=== PATIENT | male | born 1980 | race Caucasian/White ===

== ENCOUNTER 2017-01-13 08:51 | Emergency (ER) | payer OTHER ==
[~2017-01-13] VITALS: Ht 172.7 cm; Wt 87.1 kg
[~2017-01-13 08:51] MED LIST: NAPR500T4 PO; ONDN4T PO; QUET200T PO
--- OUTSIDE RECORDS SUMMARY | 2017-01-13 09:01 | XMS REPORT | Continuity of Care Document ---
Author Author [facility] Organization [facility] Address Unknown Phone Unavailable Allergies Active Description Code Type Severity Reaction Onset Reported/Identified Relationship to Patient Clinical Status Yes No Known Drug Allergies [id number] Drug Allergy Unknown N/ A 07/13/2015 Medications Problems Date Dx Coded Attending Type Code Diagnosis Diagnosed By 07/13/2015 ANALI RUSSELL, PAUL Ramos Ot F17.210 NICOTINE DEPENDENCE, CIGARETTES, UNCOMPL 07/13/2015 PAUL BRIONES MD Ot R55 SYNCOPE AND COLLAPSE 03/03/2016 FRANCIS ALLEN DO Ot F17.210 NICOTINE DEPENDENCE, CIGARETTES, UNCOMPL 03/03/2016 FRANCIS ALLEN DO Ot S90.211A CONTUSION OF RIGHT GREAT TOE W DAMAGE TO 03/03/2016 ALEJANDROMILADY Woodard DOA K Ot S99.921A UNSPECIFIED INJURY OF RIGHT FOOT, INITIA 03/03/2016 MILADY ALLEN DOA K Ot W22.09XA STRIKING AGAINST OTHER STATIONARY OBJECT 03/03/2016 MILADY ALLEN DOA K Ot Y92.[address] OR NOT APPLICABLE 03/03/2016 MILADY ALLEN DOA K Ot Y93.89 ACTIVITY, OTHER SPECIFIED 03/03/2016 ALEJANDRO DO FRANCIS K Ot Y99.8 OTHER EXTERNAL CAUSE STATUS Procedures Results Encounters ACCT No. Visit Date/Time Discharge Status Pt. Type Provider Facility Loc./Unit Complaint [id number] 03/01/2016 22:27:00 2015 23:04:00 DIS Outpatient FRANCIS ALLEN DO [facility] ER R BIG TOE BROKEN [id number] 07/13/2015 08:05:00 2015 10:50:00 DIS Emergency PAUL BRIONES MD [facility] ER FALL/HEAD INJURY
--- OUTSIDE RECORDS SUMMARY | 2017-01-13 09:01 | XMS REPORT ---
Author Author DENA MEJIA Organization [employer] Address Unknown Phone Unavailable Care Team Providers Care Visitor Services Representative Name Role Phone DENA MEJIA CP Unavailable Allergies, Adverse Reactions, Alerts Substance Reaction Event Type N.K.D.A. Info Not Available Non Drug Allergy Problems Problem Type Condition ICD-9 Code Onset Dates Condition Status Assessment Urinary frequency 788.41 Active Assessment Rectal bleeding 569.3 Active Medications No Known Medications Procedures Procedure Coding System Code Date No Charge CPT-4 22347 Feb 08, 2015 Office Visit, New Pt., Level 3 CPT-4 42532 Feb 08, 2015 URINALYSIS, AUTO, W/O SCOPE CPT-4 81408 Feb 08, 2015 Vital Signs Date/Time: Feb 08, 2015 Temperature 98.9 F Weight 209 lbs Height 70 in BMI 29.99 Index Blood Pressure Diastolic 78 mmHg Blood Pressure Systolic 120 mmHg Cardiac Monitoring Heart Rate 78 bpm Results Name Result Date Reference Range Unit Abnormality Flag UA LONG DIP (IN HOUSE) Summary Purpose [employer] Submission
[2017-01-13] MEDS ORDERED: NS IV 1000 ML 1,000 ML IV ONE (09:32)
[2017-01-13] MEDS ORDERED: FAMOTIDINE 20MG/2ML IV (PEPCID) IVP ONE (09:45)
[2017-01-13] MEDS ORDERED: ONDANSETRON 4 MG/2 ML (SDV) Z0FRAN IVP ONE (09:45)
--- NOTE | 2017-01-13 09:52 | ED Abdominal Pain ---
General Chief Complaint: Abdominal/GI Problems Stated Complaint: ABDOMINAL PAIN/NAUSEOUS Nursing Triage Note: c/o abd pain and bloody stools x 2 days. Hx of similiar episodes the last 2 years. Pt was told he needs a colonoscopy but has not had one yet. Sepsis Screen: No Definite Risk Source of Information: Patient Exam Limitations: No Limitations (KATARZYNA MORIN) History of Present Illness Time Seen By Provider: 09:19 Initial Comments Salvatore Flaherty is a 36 year old male presenting to the ED with nausea, abdominal pain, and bleeding per rectum. The symptoms have been occurring for a couple of years but got worse in August. He has lower abdominal pain and nausea all the time, but some days is much worse than others. Sometimes fatty or spicy foods make the pain worse, but usually he cannot identify a trigger. When the pain is worst he takes ibuprofen and that dulls the pain but does not take it away. He has never taken antacids or PPIs long-term. When the pain is worse, there is usually more blood. He has blood per rectum both alone and with stools. Bowel movements are usually diarrhea. Sometimes the blood is bright red and other times darker with clots. He has had two episodes of blood in vomit in the last two months. He has decreased appetite and nausea that prevent him from eating much, and has lost 8 pounds in the last two months. He presented to the ED today because the abdominal pain was severe this morning and heavy bleeding per rectum. He had started a workup in [place], [place] but moved back to [place] before he had a colonoscopy or was given a diagnosis. He also has a reducible left-sided inguinal hernia. (KATARZYNA MORIN) Allergies and Home Medications Allergies Coded Allergies: No Known Drug Allergies (Unverified , 07/13/15) Home Medications Omeprazole 20 Mg Tablet.dr, 20 MG PO BID, #60 Prescribed by: IVET BRITTON on 01/13/17 1135 Ondansetron 4 Mg Tab.rapdis, 4 MG SL Q4H PRN for NAUSEA/VOMITING-1ST LINE, #10 Ref 1 Prescribed by: IVET BRITTON on 01/13/17 1135 Tramadol HCl 50 Mg Tablet, 50 MG PO QID PRN for PAIN-MODERATE TO SEVERE, #20 Prescribed by: IVET BRITTON on 01/13/17 1135 Review of Systems Constitutional: weight loss EENTM: No Symptoms Reported Respiratory: No Symptoms Reported Cardiovascular: No Symptoms Reported Gastrointestinal: See HPI, Abdominal Pain, Diarrhea, Nausea, Poor Appetite, Rectal Bleeding Genitourinary: No Symptoms Reported Musculoskeletal: no symptoms reported Skin: no symptoms reported Psychiatric/Neurological: No Symptoms Reported Endocrine: No Symptoms Reported Hematologic/Lymphatic: No Symptoms Reported (KATARZYNA MORIN) Past Zbbugoz-Iocyjn-Uzakvi Hx Patient Social History Alcohol Use: Occasionally Uses Recreational Drug Use: No Smoking Status: Current Everyday Smoker Type Used: Cigarettes Recent Foreign Travel: No Contact w/Someone Who Travel: No Recent Infectious Disease Expo: No Recent Hopitalizations: No (KATARZYNA MORIN) Immunizations Up To Date Tetanus Booster (TDap): Unknown (KATARZYNA MORIN) Seasonal Allergies Seasonal Allergies: No (KATARZYNA MORIN) Surgeries Surgeries: Appendectomy, Tonsillectomy (KATARZYNA MORIN) Blood Transfusions Adverse Reaction to a Blood Tr: No (KATARZYNA MORIN) Family Medical History Significant Family History: Cancer (paternal grandmother with colon cancer in late 40s, maternal grandfather with colon cancer in mid 30s, paternal grandfather with lung cancer), Diabetes (paternal grandfather ) (KATARZYNA MORIN) Physical Exam Vital Signs VS - Last 72 Hours, by Label 01/13/17 01/13/17 09:13 11:50 Temp 97.9 97.9 Pulse 74 72 Resp 16 16 B/P (MAP) 132/95 Pulse Ox 98 98 O2 Delivery Room Air (IVET GARIBAY MD) Vital Signs Capillary Refill : Less Than 3 Seconds (KATARZYNA MORIN) General Appearance: mild distress HEENT: PERRL/EOMI, TMs normal Respiratory: lungs clear, normal breath sounds, no respiratory distress, no accessory muscle use Cardiovascular: regular rate, rhythm, no murmur Gastrointestinal: normal bowel sounds, soft, no pulsatile mass, tenderness ( epigastric and lower abdominal tenderness, worst in suprapubic region) Rectal: deferred (will see general surgeon this afternoon) Neurologic/Psychiatric: alert, normal mood/affect, oriented x 3 Skin: normal color, warm/dry (KATARZYNA MORIN) Progress/Results/Core Measures Results/Orders Lab Results Laboratory Tests Test 01/13/17 09:45 01/13/17 10:15 Range/Units White Blood Count 5.7 4.3-11.0 10^3/uL Red Blood Count 5.47 4.35-5.85 10^6/uL Hemoglobin 16.0 13.3-17.7 G/DL Hematocrit 48 40-54 % Mean Corpuscular Volume 88 80-99 FL Mean Corpuscular Hemoglobin 29 25-34 PG Mean Corpuscular Hemoglobin Concent 33 32-36 G/DL Red Cell Distribution Width 12.7 10.0-14.5 % Platelet Count 161 130-400 10^3/uL Mean Platelet Volume 10.4 7.4-10.4 FL Neutrophils (%) (Auto) 56 42-75 % Lymphocytes (%) (Auto) 33 12-44 % Monocytes (%) (Auto) 10 0-12 % Eosinophils (%) (Auto) 1 0-10 % Basophils (%) (Auto) 0 0-10 % Neutrophils # (Auto) 3.2 1.8-7.8 X 10^3 Lymphocytes # (Auto) 1.9 1.0-4.0 X 10^3 Monocytes # (Auto) 0.5 0.0-1.0 X 10^3 Eosinophils # (Auto) 0.1 0.0-0.3 10^3/uL Basophils # (Auto) 0.0 0.0-0.1 10^3/uL Erythrocyte Sedimentation Rate 1 0-15 MM/HR Sodium Level 140 135-145 MMOL/L Potassium Level 4.2 3.6-5.0 MMOL/L Chloride Level 106 98-107 MMOL/L Carbon Dioxide Level 26 21-32 MMOL/L Anion Gap 8 5-14 MMOL/L Blood Urea Nitrogen 10 7-18 MG/DL Creatinine 0.82 0.60-1.30 MG/DL Estimat Glomerular Filtration Rate > 60 BUN/Creatinine Ratio 12 Glucose Level 95 70-105 MG/DL Calcium Level 9.7 8.5-10.1 MG/DL Magnesium Level 2.3 1.8-2.4 MG/DL Total Bilirubin 2.0 H 0.1-1.0 MG/DL Aspartate Amino Transf (AST/SGOT) 43 H 5-34 U/L Alanine Aminotransferase (ALT/SGPT) 84 H 0-55 U/L Alkaline Phosphatase 68 40-136 U/L C-Reactive Protein High Sensitivity 0.06 0.00-0.50 MG/DL Total Protein 7.4 6.4-8.2 GM/DL Albumin 4.5 3.2-4.5 GM/DL Lipase 16 8-78 U/L Urine Color YELLOW Urine Clarity CLEAR Urine pH 8 5-9 Urine Specific [place] 1.010 L 1.016-1.022 Urine Protein NEGATIVE NEGATIVE Urine Glucose (UA) NEGATIVE NEGATIVE Urine Ketones NEGATIVE NEGATIVE Urine Nitrite NEGATIVE NEGATIVE Urine Bilirubin NEGATIVE NEGATIVE Urine Urobilinogen NORMAL NORMAL MG/DL Urine Leukocyte Esterase NEGATIVE NEGATIVE Urine RBC (Auto) NEGATIVE NEGATIVE Urine RBC NONE /HPF Urine WBC NONE /HPF Urine Squamous Epithelial Cells RARE /HPF Urine Crystals NONE /LPF Urine Bacteria NEGATIVE /HPF Urine Casts NONE /LPF Urine Mucus NEGATIVE /LPF Urine Culture Indicated NO (IVET GARIBAY MD) My Orders Orders - IVET GARIBAY MD Saline Lock/Iv-Start (01/13/17 09:32) Cbc With Automated Diff (01/13/17 09:32) Comprehensive Metabolic Panel (01/13/17 09:32) Hs C Reactive Protein (01/13/17 09:32) Erythrocyte Sedimentation Rate (01/13/17 09:32) Lipase (01/13/17 09:32) Magnesium (01/13/17 09:32) Ua Culture If Indicated (01/13/17 09:32) Ondansetron Injection (Zofran Injectio (01/13/17 09:45) Famotidine Injection (Pepcid Injection) (01/13/17 09:45) Ns Iv 1000 Ml (Sodium Chloride 0.9%) (01/13/17 09:32) Iv Push Lean Consultant Ed (01/13/17 ) (IVET GARIBAY MD) Medications Given in ED (IVET GARIBAY MD) Vital Signs/I&O Vital Sign - Last 12Hours 01/13/17 01/13/17 09:13 11:50 Temp 97.9 97.9 Pulse 74 72 Resp 16 16 B/P (MAP) 132/95 Pulse Ox 98 98 O2 Delivery Room Air (IVTE GARIBAY MD) Blood Pressure Mean: 107 Progress Note : Progress Note Patient was seen, examined, and interviewed along with Katarzyna Mccrary, 4. I agree with MS for history, exam, and documentation with the following additions. Labs were essentially unremarkable. Case was reviewed with Dr. Patrick who invited patient to see him in the clinic this afternoon and arrange for colonoscopy. Dr. Patrick did not believe a repeat CT scan was necessary at this time. I asked the patient to provide the surgery office with contact information for the facility in [place] that did his CT. Patient was also advised to complete financial services counselor paperwork. Patient was dismissed with prescriptions and follow-up instructions to the surgery office. Patient was advised he will need endoscopy for further evaluation. See discharge instructions. (IVET GARIBAY MD) Departure Impression Impression: Primary Impression: Left lower quadrant pain Additional Impressions: Nausea and vomiting Qualified Codes: R11.2 - Nausea with vomiting, unspecified Hematochezia Hematemesis Qualified Codes: K92.0 - Hematemesis; R11.0 - Nausea Disposition: 01 HOME, SELF-CARE Condition: Improved Departure-Patient Inst. Decision time for Depature: 11:10 (IVET GARIBAY MD) Referrals: JAIME PATRICK DO NO,LOCAL PHYSICIAN (PCP) Primary Care Physician Patient Instructions: Acute Abdomen (Belly Pain), Adult (DC), Bloody Stools Add. Discharge Instructions: Drink plenty of clear liquids. Use your medications as prescribed. Follow-up with Dr. Patrick in his office this afternoon at 1:00pm. Pickup financial services counselor paperwork on your way out of the emergency room today. Complete the paperwork as soon as possible. Return to emergency room if symptoms worsen. Avoid drinking alcohol and continue working on smoking cessation. Establish with a primary care provider as soon as possible. Avoid any NSAID medications such as ibuprofen, naproxen, aspirin, etc. as they may make your gastrointestinal symptoms worse. All discharge instructions reviewed with patient and/or family. Voiced understanding. Scripts Tramadol HCl (Ultram) 50 Mg Tablet 50 MG PO QID Y for PAIN-MODERATE TO SEVERE, #20 TAB Prov: IVET GARIBAY MD 01/13/17 Omeprazole (Omeprazole) 20 Mg Tablet.dr 20 MG PO BID, #60 TAB Prov: IVET GARIBAY MD 01/13/17 Ondansetron (Zofran Odt) 4 Mg Tab.rapdis 4 MG SL Q4H Y for NAUSEA/VOMITING-1ST LINE, #10 TAB 1 Refill Prov: IVET GARIBAY MD 01/13/17 Copy Copies To 1: JAIME PATRICK ANNA Jan 13, 2017 09:52 IVET GARIBAY MD Jan 13, 2017 11:34
[2017-01-13 09:55] LABS: BASOPHILS % (AUTO) 0 % (0-10); EOSINOPHILS # (AUTO) 0.1 10^3/uL (0.0-0.3); EOSINOPHILS % (AUTO) 1 % (0-10); LYMPHOCYTES # (AUTO) 1.9 X 10^3 (1.0-4.0); LYMPHOCYTES % (AUTO) 33 % (12-44); MEAN CORPUSCULAR HEMOGLOBIN 29 PG (25-34); MEAN CORPUSCULAR HGB CONC 33 G/DL (32-36); MEAN CORPUSCULAR VOLUME 88 FL (80-99); MEAN PLATELET VOLUME 10.4 FL (7.4-10.4); MONOCYTES # (AUTO) 0.5 X 10^3 (0.0-1.0); MONOCYTES % (AUTO) 10 % (0-12); NEUTROPHILS # (AUTO) 3.2 X 10^3 (1.8-7.8); NEUTROPHILS % (AUTO) 56 % (42-75); PLATELET COUNT 161 10^3/uL (130-400); RED BLOOD COUNT 5.47 10^6/uL (4.35-5.85); RED CELL DISTRIBUTION WIDTH 12.7 % (10.0-14.5); WHITE BLOOD COUNT 5.7 10^3/uL (4.3-11.0)
[2017-01-13 10:14] LABS: ALANINE AMINOTRANSFERASE 84 U/L (0-55); ALBUMIN 4.5 GM/DL (3.2-4.5); ANION GAP 8 MMOL/L (5-14); ASPARTATE AMINO TRANSFERASE 43 U/L (5-34); BLOOD UREA NITROGEN 10 MG/DL (7-18); BUN/CREATININE RATIO 12; CALCIUM 9.7 MG/DL (8.5-10.1); CARBON DIOXIDE 26 MMOL/L (21-32); CHLORIDE 106 MMOL/L (98-107); CREATININE SERUM 0.82 MG/DL (0.60-1.30); GFR ESTIMATED > 60; GLUCOSE 95 MG/DL (70-105); LIPASE 16 U/L (8-78); MAGNESIUM 2.3 MG/DL (1.8-2.4); POTASSIUM 4.2 MMOL/L (3.6-5.0); SODIUM 140 MMOL/L (135-145); TOTAL PROTEIN 7.4 GM/DL (6.4-8.2); hs C REACTIVE PROTEIN 0.06 MG/DL (0.00-0.50)
[2017-01-13 10:15] LABS: ERYTHROCYTE SEDIMENTATION RATE 1 MM/HR (0-15)
[2017-01-13 10:29] LABS: BILIRUBIN,URINE NEGATIVE (NEGATIVE); KETONES,URINE NEGATIVE (NEGATIVE); LEUKOCYTE ESTERASE ,URINE NEGATIVE (NEGATIVE); NITRITE,URINE NEGATIVE (NEGATIVE); PH,URINE 8 (5-9); PROTEIN,URINE NEGATIVE (NEGATIVE); UROBILINOGEN,URINE NORMAL (NORMAL)
[2017-01-13 10:44] LABS: SQUAMOUS EPITHELIAL CELL,UR RARE /HPF
[2017-01-13] MEDS ORDERED: TRAM-42 PO (11:35)
[2017-01-13] MEDS ORDERED: OMEP20TA7 PO (11:35)
[2017-01-13] MEDS ORDERED: ONDA4TAB8 SL (11:35)
[2017-01-13 11:50] VITALS: BP 130/90
[2017-01-30] MEDS ORDERED: OMEP20TA7 PO (11:29)
== END 2017-01-13 11:50 | disposition home or self-care (01) ==
LOC: EDUNIT# 08:51 → ER 08:56
DX: K92.1 Melena (principal); K92.0 Hematemesis; R11.0 Nausea; F17.210 Nicotine dependence, cigarettes, uncomplicated
CPT/HCPCS: 36415; 80053; 81000; 83690; 83735; 85025; 85652; 86141; 96361; 96374; 96375

== ENCOUNTER 2017-01-30 06:24 | Outpatient (CLI) | payer OTHER ==
[~2017-01-30] VITALS: Ht 172.7 cm; Wt 87.1 kg
[~2017-01-30 06:24] MED LIST changes: +OMEP20TA7 PO; +ONDA4TAB8 SL; +TRAM-42 PO
[2017-01-30] MEDS ORDERED: OMEP20TA7 PO ×2 (11:29)
== END 2017-01-30 11:31 ==
LOC: PREOP 06:24
PROVIDERS: ATTEND Surgery
DX: Z01.818 Encounter for other preprocedural examination (principal); K92.1 Melena

== ENCOUNTER 2017-02-02 11:53 | Day surgery (SDC) | payer OTHER ==
[~2017-02-02] VITALS: Ht 172.7 cm; Wt 87.1 kg
[2017-02-02] MEDS ORDERED: LACTATED RINGERS 1,000 ML IV ONE (11:55)
[2017-02-02] MEDS ORDERED: LACTATED RINGERS 1,000 ML IV STA (12:03)
[2017-02-02 12:15] VITALS: BP 113/70
[2017-02-02] MEDS ORDERED: HURRICAINE EXT TUBE (BENZOCAINE) XX PRN (12:15)
[2017-02-02] MEDS ORDERED: PROPOFOL INJECTION 50 ML IV ONE (12:33)
[2017-02-02] MEDS ORDERED: MIDAZOLAM 2 MG/2 ML (VERSED) VIAL ONE ×2 (12:33→13:17)
--- NOTE | 2017-02-02 13:15 | Progress Note-Pre Operative ---
Pre-Operative Progress Note H&P Reviewed The H&P was reviewed, patient examined and no changes noted. Time Seen by Provider: 13:08 Date H&P Reviewed: Feb 02, 2017 Time H&P Reviewed: 13:11 Pre-Operative Diagnosis: Hematochezia and Hematemesis JAIME PATRICK DO Feb 02, 2017 13:15
--- NOTE | 2017-02-02 13:55 | Progress Note-Post Operative ---
Post-Operative Progess Note Surgeon (s)/Drawer Liner (s) Surgeon JAIME PATRICK DO Drawer Liner: none Pre-Operative Diagnosis Hematochezia and Hematemesis Post-Operative Diagnosis Gastritis Duodenitis Colon Polyp Int hem grade II poor prep Procedure & Operative Findings Date of Procedure 02/02/17 Procedure Performed/Findings EGD with bx colon with snare Anesthesia Type IV sedation by Anesthesia Estimated Blood Loss Estimated blood loss (mL): scant Specimens/Packing Specimens Removed Bx from duodenum, antrum and body of stomach Rectal polyp JAIME PATRICK DO Feb 02, 2017 13:55
--- NOTE | 2017-02-02 13:57 | Endoscopy Discharge Instruct ---
Endo Procedure/Findings Findings 1.: Gastritis 2.: Other Findings (Duodenitis) 3.: Polyp (rectal) 4.: Internal Hemorrhoids (grade II) Discharge Instructions - Activity: You might feel a little sleepy until tomorrow. This is due to the medicine you received to relax you. Until tomorrow, you should: NOT drive a car, operate machinery or power tools. NOT drink any alcoholic beverages. NOT make any important decisions or sign importortant papers. Do not return to work until tomorrow, unless otherwise instructed. Resume previous activities tomorrow. Diet: Start by taking liquids. If you tolerate liquids, advance to solid food. Make appointment for one week, Instructions: 1.: Colonoscopy in 1 year 2.: Reflux Diet, EGD in 6-8 weeks Notify Physician - If you experience excessive bleeding, unusual abdominal pain, fever, or chest pain, contact your doctor immediately. [phone] Follow-Up: - I have received and understand the above instructions and will call my doctor if I have any further questions. Patient Signature Date Nurse Signature Other (Relationship) JAIME PATRICK DO Feb 02, 2017 13:57
[2017-02-02 14:15] VITALS: BP 84/46
[2017-02-02 14:40] VITALS: BP 100/64
[2017-02-02 14:52] VITALS: BP 100/64
--- NOTE | 2017-02-03 03:42 | OPERATIVE REPORT ---
DATE OF SERVICE: 02/02/2017 PREOPERATIVE DIAGNOSES: 1. Hematemesis. 2. Hematochezia. POSTOPERATIVE DIAGNOSES: 1. Gastritis. 2. Duodenitis. 3. Rectal polyp. 4. Internal hemorrhoids. 5. Poor prep. PROCEDURES: 1. EGD with biopsy. 2. Colonoscopy with snare polypectomy. SURGEON: Jhonatan Josue. DO SOW FARM MANAGER: None. ANESTHESIA: IV sedation by the anesthesiologist. SPECIMEN: 1. Biopsy from the first portion of duodenum. 2 A second biopsy was from the antrum. 3. Third biopsy was from the body of the stomach. SPECIMEN: Rectal polyp. BLOOD LOSS: Scant. FLUIDS: Per anesthesia. POSTOPERATIVE CONDITION: Stable. INDICATION FOR PROCEDURE: The patient is a 36-year-old male who had been having some rectal bleeding and hematemesis. Had been seen in [place] with a CT scan that supposedly showed some inflammation and possible ulcerative colitis. He needed a workup. FINDINGS: The patient had some duodenitis, gastritis. He had a polyp found in the rectum. He had grade II internal hemorrhoids. Unfortunately, he had a poor prep. Able to get past the transverse colon and into the descending colon, but then it was just full of poop. PROCEDURE NOTE: After informed consent was obtained, the patient was brought to the endoscopy suite. He was placed in the bed in left lateral decubitus position. IV sedation done by the anesthesiologist and the EGD scope was then inserted down the mouth through the esophagus and into the stomach. Upon entry into the stomach, I noted a lot of redness that looked like gastritis. There were no ulcers seen, no polyps and pushed towards the antrum again very red here as well and then into the first portion of the duodenum and even the second portion saw some redness which looked like duodenitis as well. Elected to do a biopsy in the duodenum and then did a biopsy in the antrum and then finally did a biopsy of the body of the stomach, retroflexed to look, did not see any hiatal hernia. Took pictures of all this and then there was only scant bleeding and then slowly withdrew the scope and then switched scopes and gloves and went to the other side of the patient to then performed the colonoscopy. I inserted the colonoscope. Pushed all the way to about [address] in, I did not notice any thickening or ulcerations in the colon. Unfortunately, started encountering large pieces of fecal material. Able to get past the transverse colon and into the descending colon; however here and towards the cecum, encountered the entire colon full of fecal material. Unable to see anything. Slowly withdrew the scope, insufflating, looked circumferentially while I was looking at the upper portion of the ascending colon into the hepatic flexure and into the transverse colon. Some retained fecal material in here down to the splenic flexure and then into the descending colon and sigmoid. I did not see any ulcerations. I did not see any thickening and then down towards the sigmoid colon and rectum. In the rectum, saw actually a polyp, took a picture of this and then a snare polypectomy and then retroflexed in the rectal vault, saw some grade II internal hemorrhoids. A little bit of redness. These were probably the cause of his bleeding. I did not see any ulcerative colitis; however, the right side of his colon had poor prep. He will probably need to repeat this. The scope was removed. The patient tolerated this procedure and he was recovered in the endoscopy suite. Job ID: [id number] DocumentID: [id number] Dictated Date: 02/02/2017 14:03:02 Range Manager Date: 02/03/2017 03:41:25 Dictated By: JHONATAN JOSUE DO
== END 2017-02-02 14:54 | disposition home or self-care (01) ==
LOC: ENDO 11:53
PROVIDERS: ATTEND Surgery
DX: K29.70 Gastritis, unspecified, without bleeding (principal); K62.1 Rectal polyp; K29.80 Duodenitis without bleeding; K64.8 Other hemorrhoids; F17.210 Nicotine dependence, cigarettes, uncomplicated; F25.9 Schizoaffective disorder, unspecified
CPT/HCPCS: 88305